=== PATIENT | female | born 1985 | race Caucasian/White ===

== ENCOUNTER 2017-12-08 21:54 | Emergency (ER) | payer SELFPAY, MEDICAID ==
[2017-12-08 22:24] LABS: URINE HCG POC HCG NEGATIVE (Negative)
[2017-12-08 22:27] LABS: BILIRUBIN,URINE NEGATIVE (NEG); COLOR,URINE YELLOW; GLUCOSE,URINE NEGATIVE (NEG); NITRITE,URINE NEGATIVE (NEG); PROTEIN,URINE NEGATIVE (NEG-TRACE)
[2017-12-08 22:45] LABS: CLARITY,URINE HAZY
[2017-12-08 22:46] LABS: AMORPHOUS SEDIMENT,UR PRESENT /HPF; BACTERIA,URINE 0 /HPF (0-FEW); RBC,URINE 0 /HPF (0-2); SQUAMOUS EPITHELIAL CELL,UR FEW /LPF; WBC,URINE 0 /HPF (0-4)
[2017-12-08] MEDS: KETOROLAC 60 MG/2 ML INJ. IM ×2 (22:58)
== END 2017-12-08 23:08 | disposition home or self-care (01) ==
LOC: ER 21:54
DX: M54.5 Low back pain (principal)
CPT/HCPCS: 72100; 81001; 81025; 96372; 99285; J1885